=== PATIENT | male | born 1960 | race Caucasian/White ===

== ENCOUNTER 2019-07-24 00:41 | Emergency (ER) | payer SELFPAY ==
[~2019-07-24] VITALS: Ht 185.4 cm; Wt 81.6 kg
[2019-07-24 00:48] VITALS: BP 163/93
== END 2019-07-24 02:58 | disposition home or self-care (01) ==
LOC: ED 00:41
DX: S00.91XA Abrasion of unspecified part of head, initial encounter (principal); F10.129 Alcohol abuse with intoxication, unspecified; I10 Essential (primary) hypertension; W26.8XXA Contact with other sharp object(s), not elsewhere classified, initial encounter; Y93.89 Activity, other specified; Y92.89 Other specified places as the place of occurrence of the external cause; Y99.8 Other external cause status